=== PATIENT | female | born 1985 | race Caucasian/White ===

== ENCOUNTER 2016-04-28 06:55 | Day surgery (SDC) | payer OTHER ==
[~2016-04-28] VITALS: Ht 174 cm; Wt 110.2 kg
[~2016-04-28 06:55] MED LIST: FERROUS SULFAT325 MG PO; MACRODANTIN100 MG PO; PRENATAL VITAMI1 T10 PO
[2016-04-28] MEDS ORDERED: PRENATAL LOW IR1 TA1 PO (07:35)
[2016-04-28] MEDS ORDERED: IMPLANON (08:16)
[2016-04-28] MEDS ORDERED: BUPIVACAINE-MPF/EPI 0.25% 30 ML VIAL INJ ONE (08:27)
[2016-04-28] MEDS ORDERED: PHENYLEPHRINE 10 MG/ML VIAL IM ONE (08:45)
[2016-04-28] MEDS ORDERED: ONDANSETRON 4 MG/2 ML VIAL IVP ONE (08:45)
[2016-04-28] MEDS ORDERED: SUCCINYLCHOLINE CHLORIDE 200 MG/10 ML VIAL IV ONE (08:45)
[2016-04-28] MEDS ORDERED: GLYCOPYRROLATE 0.2 MG/ML VIAL IV ONE (08:45)
[2016-04-28] MEDS ORDERED: LIDOCAINE MPF 1% 50 MG/5 ML VIAL INJ ONE (08:45)
[2016-04-28] MEDS ORDERED: DEXAMETHASONE 4 MG/ML VIAL IVP ONE (08:45)
[2016-04-28] MEDS ORDERED: PROPOFOL 200 MG/20 ML VIAL IV ONE (08:45)
[2016-04-28] MEDS ORDERED: DESFLURANE 240 ML BTL INH ONE (08:45)
[2016-04-28] MEDS ORDERED: ROCURONIUM 50 MG/5 ML VIAL IV ONE (08:45)
[2016-04-28] MEDS ORDERED: MIDAZOLAM 2 MG/2 ML VIAL ONE (08:53)
[2016-04-28] MEDS ORDERED: fentaNYL 0.05 MG/ML VIAL ONE (08:53)
[2016-04-28] MEDS ORDERED: HYDROmorphone 1 MG/ML AMP IVP PRN ×2 (09:25→10:00)
[2016-04-28] MEDS ORDERED: ONDANSETRON 4 MG/2 ML VIAL IVP PRN (09:25)
[2016-04-28] MEDS ORDERED: ACETAMINOPHEN 325 MG TAB PO PRN (10:00)
[2016-04-28] MEDS ORDERED: MORPHINE SULFATE 4 MG/ML SYR IV PRN (10:00)
[2016-04-28] MEDS ORDERED: HYDROcodone/APAP 5/325 MG 1 TAB TAB PO PRN (10:00)
[2016-04-28] MEDS ORDERED: MORPHINE SULFATE 2 MG/ML SYR IVP PRN (10:00)
[2016-04-28] MEDS ORDERED: ONDANSETRON 4 MG/2 ML VIAL IV PRN (10:00)
[2016-04-28] MEDS ORDERED: NACL 0.9% 1,000 ML IV SCH (10:00)
[2016-04-28] MEDS: HYDROmorphone PFS 2 MG/ML SYR ONE ×4 (10:07→10:37)
== END 2016-04-28 13:30 | disposition home or self-care (01) ==
LOC: MMU 06:55 → MDS 06:55
PROVIDERS: ATTEND Surgery
DX: K80.20 Calculus of gallbladder without cholecystitis without obstruction (principal); E66.9 Obesity, unspecified; F17.210 Nicotine dependence, cigarettes, uncomplicated; I12.9 Hypertensive chronic kidney disease with stage 1 through stage 4 chronic kidney disease, or unspecified chronic kidney disease; E11.22 Type 2 diabetes mellitus with diabetic chronic kidney disease; N18.9 Chronic kidney disease, unspecified; D64.9 Anemia, unspecified; F03.90 Unspecified dementia, unspecified severity, without behavioral disturbance, psychotic disturbance, mood disturbance, and anxiety; G40.909 Epilepsy, unspecified, not intractable, without status epilepticus; M19.90 Unspecified osteoarthritis, unspecified site; K21.9 Gastro-esophageal reflux disease without esophagitis
CPT/HCPCS: 47562; 71010; 82374; 86886; 86900; 86901; J0330; J0690; J1100; J1170; J2001; J2250; J2270; J2370; J2405; J2704; J3010; J3490; J7030; J7060; J7120